=== PATIENT | female | born 1965 | race Asian ===

== ENCOUNTER 2017-02-26 08:26 | Observation (INO) | payer OTHER ==
--- NOTE | 2017-02-26 06:09 | PDGENHP ---
History and Physical History and Physical: Assessment and Plan: 1. Subserous leiomyoma of uterus Araceli is mildly symptomatic from her subserosal fibroid. We reviewed all options. She is considering undergoing a laparoscopic myomectomy. She likely would prefer to keep her uterus. 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 Her next session starts in later March. She would like to do her surgery soon to recover in time. If no convenient surgical slots are available she may wish to wait until next summer. Subjective: Patient ID: Araceli Hammer is a 51 y.o. female who presents to [facility] for fibroids. HPI Araceli Hammer presents for a preoperative visit. She is scheduled for a robotic myomectomy and bilateral salpingectomy. The risks, benefits, and alternatives were presented and informed consent was obtained. 40 minutes of this 40 minute appointment was spent counceling, reviewing the procedure in detail, and discussing the preoperative and postoperative instructions. Below is a copy of our prior visit note. Araceli presents for follow-up of her uterine fibroid. She continues to remain mildly symptomatic with pelvic pressure and fullness. Araceli moved from [place] to [place] 2 months ago, secondary to her 's job change. She has been followed for a uterine fibroid. She had an ultrasound last March. Her trial lawyer recommended surgical removal when she settled down in [place]. Apparently, she has had this for several years. Her prior ultrasound was in 2008. At that time it measured approximately 5 cm. Now it measures 8-1/2 cm. It appears to be subserosal and possibly pedunculated. The report is rather limited in its description. She is postmenopausal and has not had any episodes of bleeding. She occasionally will feel some slight pressure and dyspareunia. Past Medical History Past Medical History: Diagnosis Date Gastrointestinal disorder Hypertension Past Surgical History Past Surgical History: Procedure Laterality Date SECTION CURRENT MEDICATIONS: Current Outpatient Prescriptions Medication Sig esomeprazole (NEXIUM) 20 mg capsule Take 20 mg by mouth daily. multivitamin (HEXAVITAMIN) per tablet Take 1 tablet by mouth daily. propranolol (INDERAL) 10 mg tablet TK 1 T PO QD valsartan (DIOVAN) 80 mg tablet TK 1 T PO QD No current facility-administered medications for this visit. ALLERGIES: Penicillins I have reviewed, verified and agree with the past medical, surgical, , family, social and ROS history as documented by the RN today. Review of Systems Objective: Vital Signs: Visit Vitals BP 118/72 Pulse 65 Temp 36.6 C (97.8 F) (Temporal Artery) Resp 16 Ht 1.626 m (5' 4") Wt 60.1 kg (132 lb 9.6 oz) SpO2 95% BMI 22.76 kg/m2 Physical Exam Gen: This is an alert, well developed woman in no distress. Neuro: She moves all extremities. Psych: She is appropriate, oriented, with normal affect. Neck: No thyroid enlargement, adenopathy, or tenderness. Lungs: Clear to ascultation, no wheezes or rales. Heart: Regular rate and rhythm without obvious murmurs. Abdomen: Soft, non-tender, without guarding, rebound, or masses. Extremities: No edema or cyanosis. Pelvic: Normal external genitalia. Non-gaping introitus, vagina without discharge, adequately estrogenized, no significant prolapse. Cervix without lesions or discharge. The patient has an irregularly shaped, pelvic mass, consistent with a subserosal fibroid. The fibroid is mildly tender. She has an irregularly shaped uterus consistent with multiple intramural and subserosal fibroids. Adnexa non-tender without enlargement. DATA: A pelvic ultrasound was performed today. The uterus measures 6.9 x 3.9 cm. She has a pedunculated anterior fibroid measuring 8.0 x 7.0 x 4.9 cm. The ovaries are unremarkable. TIME/COMMUNICATION: I personally spent a total of 30 minutes. Of that 20 minutes was counseling/ coordination of patient's care. See my note above for details. Saul Acosta MD Board Certified Female Pelvic Medicine and Reconstructive Surgery Director of Minimally Invasive Gynecologic Surgery, [facility] Minimally Invasive Gynecologic [facility] Designee
[2017-02-26] MEDS ORDERED: VASOPRESSIN 20 UNIT/ML VIAL ONE (08:33)
[2017-02-26] MEDS ORDERED: BUPIVACAINE/EPI 0.5% 30 ML SDV ONE (08:33)
[2017-02-26] MEDS ORDERED: ceFAZolin 2 GM/DEXTROSE 100 ML IV ONE (08:33)
[2017-02-26] MEDS ORDERED: CEFAZOLIN 2 GM/DEXTROSE/100 ML BAG IV ONE (08:39)
[2017-02-26] MEDS ORDERED: LIDOCAINE 1% 2 ML INJ ONE (08:39)
[2017-02-26] MEDS ORDERED: LIDOCAINE 1% 2 ML INJ ID PRN (09:06)
[2017-02-26] MEDS ORDERED: LR 1,000 ML IV ONE (09:06)
--- NOTE | 2017-02-26 09:23 | PDANEPAE ---
ANE History of Present Illness uterine fibroids ANE Past Medical History - Cardiovascular History Hx Hypertension: Yes Hx Arrhythmias: No Hx Chest Pain: No Hx Coronary Artery / Peripheral Vascular Disease: No Hx CHF / Valvular Disease: No Hx Palpitations: No - Pulmonary History Hx COPD: No Hx Asthma/Reactive Airway Disease: No Hx Recent Upper Respiratory Infection: No Hx Oxygen in Use at Home: No Hx Sleep Apnea: No Sleep Apnea Screening Result - Last Documented: Negative - Neurologic History Hx Cerebrovascular Accident: No Hx Seizures: No Hx Dementia: No - Endocrine History Hx Diabetes: No - Renal History Hx Renal Disorders: No - Liver History Hx Hepatic Disorders: No - Neurological & Psychiatric Hx Hx Neurological and Psychiatric Disorders: No - Cancer History Hx Cancer: No - Congenital Disorder History Hx Congenital Disorders: No - GI History Hx Gastrointestinal Disorders: Yes Gastrointestinal History Comment: ACID REFLEX - Chronic Pain History Chronic Pain: No - Surgical History Prior Surgeries: C-SECTIONS 1994, 1997 ANE Review of Systems Review of systems is: negative - Exercise capacity METS (RN): 5 METS ANE Patient History - Allergies Allergies/Adverse Reactions: Penicillins Allergy (Verified 02/20/17 14:20) dizzy - Home Medications Home medications: home medication list seen and reviewed Home Medications: Esomeprazole Magnesium [Nexium] 20 mg PO BID 02/20/17 [Last Taken 02/26/17 06:40 ] Multivitamins [Multivitamin (*)] 1 each PO DAILY 02/20/17 [Last Taken 02/24/17] Propranolol HCl [Inderal 10mg (*)] 10 mg PO DAILY 02/20/17 [Last Taken 02/26/17 06:40] Valsartan [Diovan (*)] 80 mg PO DAILY 02/20/17 [Last Taken 02/26/17 06:40] - NPO status NPO Since - Liquids (Date): 02/25/17 NPO Since - Liquids (Time): 20:00 NPO Since - Solids (Date): 02/25/17 NPO Since - Solids (Time): 20:00 - Anes Hx Anes Hx: no prior problems - Smoking Hx Smoking Status: Never smoked - Family Anes Hx Family Anes Hx: none Family Hx Anesthesia Complications: N/A ANE Labs/Vital Signs - Vital Signs Blood Pressure: 143/105 Heart Rate: 68 Respiratory Rate: 20 O2 Sat (%): 94 Height: 162.56 cm Weight: 58.513 kg ANE Physical Exam - Airway Neck exam: FROM Mallampati Score: Class 2 Mouth exam: normal dental/mouth exam - Pulmonary Pulmonary: no respiratory distress - Cardiovascular Cardiovascular: regular rate and rhythym - ASA Status ASA Status: II ANE Anesthesia Plan Anesthesia Plan: general endotracheal anesthesia
[2017-02-26] MEDS ORDERED: MIDAZOLAM 2 MG/2 ML VIAL IVP ONE (09:24)
[2017-02-26] MEDS ORDERED: fentaNYL 100 MCG/2 ML INJ ONE ×2 (09:32)
[2017-02-26] MEDS ORDERED: PROPOFOL 200 MG/20 ML VIAL ONE (09:32)
[2017-02-26] MEDS ORDERED: ROCURONIUM 50 MG/5 ML VIAL ONE ×2 (09:36)
[2017-02-26] MEDS ORDERED: ACETAMINOPHEN 500 MG TAB PO PRN (10:37)
[2017-02-26] MEDS ORDERED: OXYCODONE/APAP 5/325 TAB PO PRN (10:37)
[2017-02-26] MEDS ORDERED: HYDROmorphONE/DILAUDID 1 MG/ML SYR IVP PRN (10:37)
[2017-02-26] MEDS ORDERED: fentaNYL 100 MCG/2 ML INJ IVP PRN (10:37)
[2017-02-26] MEDS ORDERED: ONDANSETRON 4 MG/2 ML VIAL IVP PRN (10:37)
[2017-02-26] MEDS ORDERED: LR 500 ML IV PRN (10:37)
[2017-02-26] MEDS ORDERED: PROMETHAZINE HCL 25 MG/ML INJ IVP PRN (10:37)
[2017-02-26] MEDS ORDERED: NALOXONE HCL 0.4 MG/ML INJ IVP PRN (10:37)
--- NOTE | 2017-02-26 11:12 | POSTANESTH ---
Post Anesthetic Evaluation Cardiovascular Status: Normal, Stable Respiratory Status: Normal, Stable Level of Consciousness/Mental Status: Can Participate in Eval Pain Control: Adequate, Prn Tx Ordered Nausea/Vomiting Control: Adequate, Prn Tx Ordered Complications Possibly Related to Anesthesia: None Noted
[2017-02-26 12:17] VITALS: RESP 18; TEMP 98.5
[2017-02-26 13:16] VITALS: PULSE 60
[2017-02-26 14:26] VITALS: BP 130/80; O2SAT 90
--- NOTE | 2017-02-26 22:05 | GOP ---
[f rep st] OPERATIVE REPORT DATE OF OPERATION: 02/26/2017 SURGEON: Saul Acosta MD TIPPLE WORKER: Yanet John CFA ANESTHESIA: General. PREOPERATIVE DIAGNOSIS: 1. Uterine fibroids. 2. Pelvic pain. POSTOPERATIVE DIAGNOSIS: 1. Uterine fibroids. 2. Pelvic pain. 3. Tubal cyst. PROCEDURE PERFORMED: 1. Robotic-assisted laparoscopic myomectomy. 2. Bilateral salpingectomy. 3. Lysis of adhesions. FINDINGS: SPECIMENS: Bilateral tubes and uterine fibroid. ESTIMATED BLOOD LOSS: Scant. DESCRIPTION OF PROCEDURE: The patient was taken to the operating room, where she was identified. G eneral anesthesia was administered and found to be adequate. She was placed in the lithotomy positi on and prepared and draped in normal sterile fashion. A Salazar catheter was placed in her bladder. A Hulka tenaculum was placed in the uterus for manipulation. A 1 cm transverse incision was made at the superior margin of the umbilicus. The Veress needle with CO2 gas flowing was advanced into the peritoneal cavity. The abdomen was then insufflated with car bon dioxide gas. The 12 mm trocar followed by the laparoscope were then inserted. The upper abdome n was unremarkable. Two lateral ports were placed, one on the right and one on the left under direc t visualization. She then was placed in Trendelenburg position and the da Fernando robot docked on the left side. The instruments were then brought into the abdominal cavity under direct visualization. The patient had adhesions of the anterior uterine serosa to the posterior aspect of the anterior abd ominal wall. These were taken down sharply to prevent dysuria. The left fallopian tube was then se parated along the mesosalpinx and excised. There was a pedunculated fibroid arising from the right fundal portion of the uterus. It was also attached to the right fallopian tube. The vascular attac hments were cauterized and transected. An incision was made along the mesosalpinx to separate the f allopian tube from the adnexa. The fibroid was then bivalved to aid in removal through the umbilicu s. The robot was then undocked. The umbilical incision was extended. A was used to rem ove the specimen through the umbilical incision. The fascia was then closed with 0 Vicryl, the skin with 4-0 Monocryl and surgical adhesive. The anesthesia was reversed and the patient taken to the PACU awake, in stable condition. COMPLICATIONS: None. DISPOSITION: Patient stable to PACU. /[id number]/MODL
== END 2017-02-26 15:00 | disposition home or self-care (01) ==
LOC: F3E 08:26 → FOB 12:12
PROVIDERS: ADMIT Obstetrics & Gynecology; ATTEND Obstetrics & Gynecology
PROC: 0UB94ZZ Excision of Uterus, Percutaneous Endoscopic Approach (ICD-10-PCS; principal; 2017-02-26 09:45)
PROC: 8E0W4CZ Robotic Assisted Procedure of Trunk Region, Percutaneous Endoscopic Approach (ICD-10-PCS; principal; 2017-02-26 09:45)
PROC: 0UB74ZZ Excision of Bilateral Fallopian Tubes, Percutaneous Endoscopic Approach (ICD-10-PCS; principal; 2017-02-26 09:45)
DX: D25.2 Subserosal leiomyoma of uterus (principal); R10.2 Pelvic and perineal pain; I10 Essential (primary) hypertension; K21.9 Gastro-esophageal reflux disease without esophagitis; Z78.0 Asymptomatic menopausal state; Z88.0 Allergy status to penicillin
CPT/HCPCS: 58545; 58661; C1765; J0690; J2250; J2704; J3010